=== PATIENT | male | born 1950 | race Caucasian/White ===

== ENCOUNTER 2016-09-13 10:32 | Day surgery (SDC) | payer MEDICARE, BC ==
[2016-09-13] MEDS ORDERED: LIDOCAINE 2% MDV (20MG/ML) 20ML VIAL IV ONE (14:00)
[2016-09-13] MEDS ORDERED: PROPOFOL 10 MG/ML VIAL IV ONE (14:00)
--- NOTE | 2016-09-15 14:23 | Operative Note ---
Dictated by Cathryn Quintero DATE OF SURGERY: 09/13/2016 OPERATION: Surveillance COLONOSCOPY. ENDOSCOPIST: Xavi Wheeler DO TOP FRAME MAKER: Cathryn Quintero INDICATIONS: Surveillance for colorectal cancer in a patient with family history of colon cancer in father. PROCEDURE: The procedure was discussed including risks, benefits, and alternatives with the patient and he was agreeable to the procedure. He signed informed written consent and was taken back to the endoscopy unit. He was placed in the left lateral decubitus position and anesthesia was begun with a propofol titrated to patient effect. Digital rectal exam was performed and prostate was palpated, which was normal. A well-lubricated PCF-160 colonoscope was then introduced into the rectum and advanced all the way to the cecum, which was identified by the appendiceal orifice and ileocecal valve. The colonoscope was then retroflexed within the cecum and no abnormalities were found. The colonic mucosa appeared normal with normal distensibility, normal vascularity, and normal mucosal folds. The colonoscope was then withdrawn to the ascending colon in which one 2 mm sessile polyp was identified and cold forceps polypectomy was performed. The polyp was removed completely and sent for pathology. The colonoscope continued to be withdrawn from the colon, and the colonic mucosa was noted to be normal with normal folds as well as normal vascularity and normal distensibility. The colonoscopy was then retroflexed within the rectum, which showed normal rectal mucosa without any hemorrhoids identified. The bowel prep was good. The colonoscopy was then withdrawn completely from the patient. The patient tolerated the procedure well and was transferred to the recovery unit. IMPRESSION: A 2 mm ascending polyp removed by cold forceps and sent to pathology. RECOMMENDATIONS: Await pathology of the polyp. Recommend a repeat colonoscopy in 5 years due to family history of colon cancer in first-degree relative. The patient is recommended to continue medications and then can be started on regular diet. As always, thank you for allowing me to participate in the care of your patient. CC: Dr. Sonny SALINAS
== END 2016-09-13 13:30 | disposition home or self-care (01) ==
LOC: HOP 10:32
PROVIDERS: ATTEND Internal Medicine Gastroenterology
DX: Z12.11 Encounter for screening for malignant neoplasm of colon (principal); Z80.0 Family history of malignant neoplasm of digestive organs; K63.5 Polyp of colon

== ENCOUNTER 2018-10-09 10:58 | Day surgery (SDC) | payer MEDICARE, BC ==
[2018-10-09] MEDS ORDERED: LIDOCAINE 2% MDV (20MG/ML) 20ML VIAL IV ONE (10:59)
[2018-10-09] MEDS ORDERED: PROPOFOL 10 MG/ML VIAL IV ONE (10:59)
--- NOTE | 2018-10-10 08:31 | Operative Note ---
OPERATION: ESOPHAGOGASTRODUODENOSCOPY with multiple biopsies. INDICATION: Mild dysphagia. The patient claims to have a lump sensation in the back of his throat. He also has very rare episodes of solid food dysphagia towards the mid chest region. Upper endoscopy is performed at this time for further evaluation. ANESTHESIA: Intravenous sedation was administered by the department of anesthesiology and included Diprivan titrated to effect. PROCEDURE: Following informed consent from this alert individual, including a discussion of the risks and benefits of the procedure and an opportunity for the patient to ask questions, the patient was in the left lateral decubitus position. The Olympus [id number] video endoscope was inserted into the posterior pharynx and esophagus without resistance. The posterior pharynx appeared to be normal with some secretions noted. The proximal esophagus is free from mucosal changes. The mid and distal esophagus were unremarkable except for a triangular- shaped 1 cm ulceration which was rather superficial just above the squamocolumnar junction. The stomach was then entered. The gastric fundus and pars media had a normal appearance with normal folds and distensibility. The antrum was evaluated circumferentially demonstrated erythema in a patchy distribution. The pylorus was patent. The duodenal bulb, sweep, and descending duodenum were examined in a serial fashion and found to be normal. The endoscope was then drawn back into the body of the stomach. Retroflexion accomplished following air insufflation failed to demonstrate any additional changes. The endoscope was then straightened. Biopsies were first taken from the stomach to assess for Helicobacter pylori and check histology. A second set of biopsies was taken from the distal esophageal ulceration. It was quite friable. The mid and proximal esophagus had a normal-appearing mucosa. There might be some extrinsic compression from the cervical osteophytes along the proximal esophagus. The endoscope was then removed. A 48-[place] bougie was then advanced through the upper esophagus without resistance. The patient tolerated the procedure well and was returned to the recovery area in stable condition. IMPRESSION: 1. Triangular-shaped 1 cm distal esophageal ulcer at the squamocolumnar junction. Biopsies taken. 2. Antral gastritis. Gastric biopsies taken. 3. Normal duodenum. 4. Dilatation completed with a 48-[place] bougie without resistance. RECOMMENDATION: The patient was started on Protonix (pantoprazole) 40 mg q.a.m. He was to follow up with his primary care physician. Further recommendations may be forthcoming pending results of biopsy obtained today. As always, thank you for allowing me to participate in the care of your patient. RITA
== END 2018-10-09 13:50 | disposition home or self-care (01) ==
LOC: HOP 10:58
PROVIDERS: ATTEND Internal Medicine Gastroenterology
DX: R13.10 Dysphagia, unspecified (principal); R09.89 Other specified symptoms and signs involving the circulatory and respiratory systems; K22.10 Ulcer of esophagus without bleeding; K29.70 Gastritis, unspecified, without bleeding; K21.9 Gastro-esophageal reflux disease without esophagitis; E78.00 Pure hypercholesterolemia, unspecified

== ENCOUNTER 2019-02-12 08:35 | Day surgery (SDC) | payer MEDICARE, BC ==
[2019-02-12] MEDS ORDERED: LIDOCAINE 2% MDV (20MG/ML) 20ML VIAL IV ONE (08:36)
[2019-02-12] MEDS ORDERED: PROPOFOL 10 MG/ML VIAL IV ONE (08:36)
--- NOTE | 2019-02-13 07:10 | Operative Note ---
DATE: 02/12/2019 OPERATION: ESOPHAGOGASTRODUODENOSCOPY. INDICATION: Previously noted distal esophageal ulceration. The patient returns at this time to assess healing. Clinically he is doing well. ANESTHESIA: Intravenous sedation was administered by the department of anesthesiology and included Diprivan titrated to effect. PROCEDURE: Following informed consent from this alert individual, including a discussion of the risks and benefits of the procedure and an opportunity for the patient to ask questions, the patient was in the left lateral decubitus position. The Olympus [id number] video endoscope was inserted into the esophagus without resistance. The proximal esophagus had a normal appearance with normal folds and distensibility. The mid and distal esophagus likewise was free from mucosal changes. The squamocolumnar junction approximated the diaphragmatic hiatus. The previously noted distal esophageal ulceration completely healed. The stomach was entered. The gastric fundus and pars media had a normal appearance, with normal folds and distensibility. The antrum evaluated circumferentially demonstrated some linear streak erythema which was relatively mild. No ulcerations or erosions were seen. The pylorus was patent. The duodenal bulb, sweep, and descending duodenum were examined in a serial fashion and found to be normal. The endoscope was then drawn back into the body of the stomach where retroflexion accomplished following air insufflation failed to demonstrate any additional changes. The endoscope was then straightened and withdrawn back through a normal esophagus and removed from the patient. He tolerated the procedure well and was returned to the recovery area in stable condition. IMPRESSION: 1. Healed distal esophageal ulceration. 2. Mild antral gastritis. RECOMMENDATION: The patient will continue on acid blockade therapy once daily. He will follow up with Dr. Balwinder Dennis. He was asked to avoid anti-inflammatory medications on a regular basis. As always, thank you for allowing me to participate in the care of your patient. RITA
== END 2019-02-12 10:15 | disposition home or self-care (01) ==
LOC: HOP 08:35
PROVIDERS: ATTEND Internal Medicine Gastroenterology
DX: Z09 Encounter for follow-up examination after completed treatment for conditions other than malignant neoplasm (principal); Z87.19 Personal history of other diseases of the digestive system; K29.70 Gastritis, unspecified, without bleeding; E78.00 Pure hypercholesterolemia, unspecified